=== PATIENT | male | born 1975 | race Caucasian/White ===

== ENCOUNTER → 2018-09-29 | Outpatient (CLI) | payer BC ==
--- NOTE | 2018-09-29 21:25 | CONS ---
CONSULTATION DATE OF SERVICE: 09/29/2018 43-year-old gentleman who has been evaluated in the sleep center for possible obstructive sleep apnea-hypopnea syndrome. HISTORY OF PRESENT ILLNESS SLEEP-WAKE EVALUATION: SLEEP SCHEDULE: Patient usual sleep schedule on weekdays from around 10:30 p.m. until 6 or 10 am and on weekends from 11:30 p.m. to 6 - 7 a.m. FALLING ASLEEP: No problems with falling asleep. No TV in bedroom. DURING THE SLEEP: Patient is staying in different positions, including back side or stomach. He has multiple awakenings from sleep about 4 times with 1 episode of nocturia. He remembers awakenings from sleep with choking and restless legs. His brother told him about possible episodes of stopped breathing during the sleep. DURING THE DAY/SLEEP WAKE EVALUATION: In the morning, patient wakes up tired, feels sleepy during the day. Ruth Sleepiness Scale is 7. Sometimes patient takes naps. No history of hypnagogic hallucinations, or cataplexy, but positive history of sleep paralysis, usually in the middle of the night. PAST MEDICAL HISTORY: Medical history for sinuses problems. PAST SURGICAL HISTORY: Sinus surgery. The surgery for mandible fracture on the left side, tonsillectomy. MEDICATIONS: None at the present time. SOCIAL HISTORY: Negative for smoking. Alcohol consumption occasional. FAMILY HISTORY: Heart problems. REVIEW OF SYSTEMS: Multiple awakenings from sleep. PHYSICAL EXAM: gentleman without distress, BP 117/66, HR 79, RR 16, height 5 feet 10 inches, weight 176 pounds with body mass index 25.1, temperature 98.3, oxygen saturation at room air 98%. Oropharynx showed extremely low position of soft palate. Mallampati 4. There is some slight asymmetry of the nose. Neck Supple, no JVD. Thyroid is not palpable. LUNGS Clear to percussion and to auscultation. Good air exchange. No wheezing or rhonchi. HEART S1, S2 regular. No murmurs, gallops, or rubs. ABDOMEN Soft and nontender. Bowel sounds are present. No organomegaly appreciated. EXTREMITIES No clubbing or cyanosis. [employer] Awake, alert, and oriented X3. Cranial nerves 2 to 7 intact. There is no fasciculation or atrophy noted. No focal deficits observed. IMPRESSION: 1. Snoring, multiple awakenings from sleep, including nocturia and choking, witnessed episodes of stopped breathing during sleep, extremely low position of soft palate, Mallampati 4. Obstructive sleep apnea-hypopnea syndrome. 2. Status post tonsillectomy. 3. Status post sinus surgery. 4. Status post mandibular fracture surgery on the left side. 5. History of sleep off paralysis. 6. History of episodes of kicking at night. Possible periodic limb movements. PLAN: 1. Home sleep apnea test, if home sleep apnea test will be negative, then we will have to proceed with polysomnogram for evaluation of patient's breathing during sleep and also to check for any further periodic limb movements. 2. CPAP/BiPAP titration if sleep study confirms obstructive sleep apnea-hypopnea syndrome. 3. Preferable position during sleep on the side. 4. No driving if patient feels any sleepiness. 5. I will see patient for follow up visit to explain results of testing and following plan. Thank you very much for referring this patient for consultation. Stew Vallejo MD, PhD, FAASM Diplomat of [employer] [facility] [place] MMODL / IJN: [id number] /
== END ==
LOC: SLEEP 15:16
PROVIDERS: ATTEND Internal Medicine
DX: G47.33 Obstructive sleep apnea (adult) (pediatric) (principal); Z90.89 Acquired absence of other organs; Z98.890 Other specified postprocedural states; Z86.69 Personal history of other diseases of the nervous system and sense organs; Z99.89 Dependence on other enabling machines and devices
CPT/HCPCS: 99201

== ENCOUNTER 2020-11-13 10:20 | Day surgery (SDC) | payer BC ==
[2020-11-12 11:32] VITALS: BMI 25.1
[2020-11-13] MEDS ORDERED: LACTATED RINGERS 1,000 ML IV SCH (10:39)
[2020-11-13] MEDS ORDERED: LIDOCAINE 1% (10MG/ML) FOR IV START INTRADERMA PRN (10:39)
[2020-11-13 10:47] VITALS: TEMP 98.3
[2020-11-13] MEDS ORDERED: PROPOFOL 10 MG/ML 20 ML VIAL IV ONE (11:18)
--- NOTE | 2020-11-13 11:37 | P.PCN ---
Date of Procedure: 11/13/20 Procedure(s) Performed: BRIEF HISTORY: Patient is a 45-year-old pleasant male scheduled for an elective colonoscopy as a part of evaluation of change in bowel habits and rectal discomfort and pressure for the last 6 months duration. PROCEDURE PERFORMED: Colonoscopy. PREOPERATIVE DIAGNOSIS: Change in bowel habits and rectal discomfort for 6 months duration. IV sedation per Anesthesia. PROCEDURE: After informed consent was obtained, the patient, was brought into the endoscopy unit. IV sedation was administered by Anesthesia under continuous monitoring. Digital rectal examination was normal. Initially the Olympus CF-160 flexible video colonoscope was then inserted in the rectum, gradually advanced into the cecum without any difficulty. Careful examination was performed as the scope was gradually being withdrawn. Ileocecal valve and the appendiceal orifice were visualized and appeared normal. Prep was excellent. Mucosa of the cecum, ascending colon, transverse colon, descending colon, sigmoid colon, and rectum appeared normal. Retroflexion was performed in the rectum and small internal hemorrhoids were seen. The patient tolerated the procedure well. IMPRESSION: Normal-appearing colon from rectum to cecum with no evidence of colorectal neoplasia. Small internal hemorrhoids. RECOMMENDATIONS: Findings of this examination were discussed with the patient as his family.. He was advised to be a high-fiber diet and take fiber supplements a regular basis. He can have a repeat screening colonoscopy in 10 years.
[2020-11-13 12:00] VITALS: BP 105/64; PULSE 67; RESP 20
== END 2020-11-13 12:25 | disposition home or self-care (01) ==
LOC: ORWHC2ENDO 10:20
PROVIDERS: ATTEND Internal Medicine Gastroenterology
DX: K64.8 Other hemorrhoids (principal); Z79.899 Other long term (current) drug therapy; J45.909 Unspecified asthma, uncomplicated; Z91.013 Allergy to seafood; Z91.048 Other nonmedicinal substance allergy status
CPT/HCPCS: 45378; J2704